=== PATIENT | female | born 1965 | race Asian ===

== ENCOUNTER 2022-04-04 20:21 | Emergency (ER) | payer SELFPAY ==
[~2022-04-04] VITALS: Ht 157.5 cm; Wt 68.2 kg
[2022-04-04 20:59] VITALS: TEMP 98
[2022-04-04 21:50] LABS: BASO # 0.1 K/mm3 (0.0-0.2); EOS # 0.1 K/mm3 (0.0-0.7); EOS % 0.7 % (0.0-4.0); GRAN # 9.6 K/mm3 (1.4-6.5); GRAN % 77.2 % (42.2-75.2); HEMATOCRIT 42.9 % (37.0-47.0); LYMPH # 2.1 K/mm3 (1.2-3.4); LYMPH % 16.8 % (20.0-51.0); MEAN CELL VOLUME 83 fl (80.0-100.0); MEAN CORPUSCULAR HEMOGLOBIN 29 pg (27-31); MEAN CORPUSCULAR HGB CONC 35 g/dl (33.0-37.0); MEAN PLATELET VOLUME 9.8 fl (7.4-10.4); MONO # 0.5 K/mm3 (0.1-0.6); MONO % 3.9 % (1.7-9.3); PLATELET COUNT 349 K/mm3 (130-400); RED BLOOD COUNT 5.18 M/mm3 (4.10-5.30); REDCELL DISTRIBUTION WIDTH-CV 13.7 % (11.5-14.5)
[2022-04-04 22:07] LABS: ALBUMIN 4.4 gm/dL (3.5-5.0); BILIRUBIN,TOTAL 0.5 mg/dL (0.2-1.2); CALCIUM 9.7 mg/dL (8.4-10.2); CREATININE, serum 0.87 mg/dL (0.57-1.11); TOTAL PROTEIN 8.1 gm/dL (6.2-8.1)
[2022-04-04 22:13] LABS: TROPONIN-I 0.01 ng/mL (0.00-0.033)
[2022-04-05] MEDS ORDERED: NORVASC 10MG10 MG PO (00:11)
[2022-04-05] MEDS ORDERED: BENTYL 20MG20 MG/TAB PO (00:11)
[2022-04-05] MEDS ORDERED: ZOFRAN 4MG T4 MG/TAB PO (00:11)
[2022-04-05 00:21] VITALS: BP 193/102; PULSE 82
== END 2022-04-05 00:21 | disposition home or self-care (01) ==
LOC: COL.ER 20:21
PROVIDERS: Emergency Medicine
DX: K29.70 Gastritis, unspecified, without bleeding (principal); I10 Essential (primary) hypertension; F17.200 Nicotine dependence, unspecified, uncomplicated; Z20.822 Contact with and (suspected) exposure to COVID-19; Z28.310 Unvaccinated for COVID-19
CPT/HCPCS: J0500; J2405; J7040